=== PATIENT | male | born 1960 | race Caucasian/White ===

== ENCOUNTER 2019-03-29 20:53 | Emergency (ER) | payer MEDICAID, OTHER ==
[~2019-03-29] VITALS: Ht 182.9 cm; Wt 72.0 kg
[2019-03-29 21:06] VITALS: BP 115/90
== END 2019-03-29 22:04 | disposition home or self-care (01) ==
LOC: ED 21:50
DX: L50.0 Allergic urticaria (principal); L24.81 Irritant contact dermatitis due to metals; B86 Scabies; F17.210 Nicotine dependence, cigarettes, uncomplicated
CPT/HCPCS: 99284; J7512; Q0163